=== PATIENT | male | born 1980 | race Caucasian/White ===

== ENCOUNTER 2022-06-07 01:28 | Emergency (ER) | payer MEDICARE, OTHER ==
[~2022-06-07] VITALS: Ht 167.6 cm; Wt 77.1 kg
[2022-06-07 01:45] VITALS: BP 134/70
[2022-06-07] MEDS ORDERED: AMOX500C2 PO (02:20)
[2022-06-07] MEDS ORDERED: CIPR7.5D9 EACH EAR (02:20)
--- NOTE | 2022-06-07 02:24 | NUR ---
Patient discharged to home in stable condition. Written and verbal after care instructions given. Patient verbalizes understanding of instruction.
== END 2022-06-07 02:25 | disposition home or self-care (01) ==
LOC: ER 01:33
DX: H60.93 Unspecified otitis externa, bilateral (principal); H66.92 Otitis media, unspecified, left ear; Z79.899 Other long term (current) drug therapy